=== PATIENT | female | born 1985 | race Two or more races ===

== ENCOUNTER → 2017-02-05 | Outpatient (REF) | payer OTHER | LOC: M LAB REF 12:52 | PROVIDERS: ATTEND Specialist | DX: Z12.4 Encounter for screening for malignant neoplasm of cervix (principal) ==

== ENCOUNTER → 2017-05-06 | Outpatient (REF) | payer OTHER | LOC: M SFHCLERA 13:19 | PROVIDERS: ATTEND Physician Assistant | DX: N39.0 Urinary tract infection, site not specified (principal) ==

== ENCOUNTER → 2018-05-06 | Outpatient (REF) | payer OTHER, MEDICAID ==
[2018-05-08 14:49] LABS: HPV HYBRID CAPTURE II Positive (Negative)
== END ==
LOC: M LAB REF 17:31
DX: Z01.419 Encounter for gynecological examination (general) (routine) without abnormal findings (principal); Z11.51 Encounter for screening for human papillomavirus (HPV); R87.611 Atypical squamous cells cannot exclude high grade squamous intraepithelial lesion on cytologic smear of cervix (ASC-H)
CPT/HCPCS: 88142

== ENCOUNTER → 2018-09-07 | Outpatient (REF) | payer OTHER, MEDICAID ==
[2018-09-07 20:09] LABS: HEMATOCRIT 41.4 % (36.0-47.0); HEMOGLOBIN 13.9 g/dl (12.0-15.5); MEAN CORPUSCULAR HEMOGLOBIN 30.7 pg (27.0-33.0); MEAN CORPUSCULAR HGB CONC 33.6 g/dl (32.0-36.5); MEAN CORPUSCULAR VOLUME 91.4 fl (80.0-96.0); PLATELET COUNT, AUTOMATED 302 10^3/uL (150-450); RED BLOOD COUNT 4.53 10^6/uL (4.00-5.40); RED CELL DISTRIBUTION WIDTH 12.3 % (11.5-14.5); WHITE BLOOD COUNT 11.9 10^3/uL (4.0-10.0)
== END ==
LOC: M SFHCLERA 14:48
DX: S61.451A Open bite of right hand, initial encounter (principal); X58.XXXA Exposure to other specified factors, initial encounter; Y92.9 Unspecified place or not applicable
CPT/HCPCS: 85027

== ENCOUNTER → 2019-06-07 | Outpatient (REF) | payer OTHER, MEDICAID ==
[2019-06-10 00:08] LABS: HPV HYBRID CAPTURE II Negative (Negative)
== END ==
LOC: M LAB REF 19:33
PROVIDERS: ATTEND Specialist
DX: R87.610 Atypical squamous cells of undetermined significance on cytologic smear of cervix (ASC-US) (principal)

== ENCOUNTER → 2019-07-07 | Outpatient (REF) | payer OTHER | LOC: M SFHCLERA 13:29 | PROVIDERS: ATTEND Nurse Practitioner Family | DX: R53.81 Other malaise (principal) ==

== ENCOUNTER → 2020-12-12 | Outpatient (REF) | payer OTHER ==
[2020-12-12 16:13] LABS: FOLLICLE STIMULATING HORMONE 5.5 mIU/mL; FREE T4 0.83 NG/DL (0.76-1.46); LUTEINIZING HORMONE 3.3 mIU/mL; PROLACTIN 15.6 NG/ML; THYROID STIMULATING HORMONE 2.15 uIU/ML (0.358-3.740)
== END ==
LOC: M PLALAB 13:29
PROVIDERS: ATTEND Specialist
DX: N92.6 Irregular menstruation, unspecified (principal)

== ENCOUNTER → 2021-07-11 | Outpatient (REF) | payer OTHER | LOC: M SFHCWAGY 13:17 | PROVIDERS: ATTEND Specialist | DX: Z12.4 Encounter for screening for malignant neoplasm of cervix (principal) ==

== ENCOUNTER 2021-08-30 08:56 | Emergency (ER) | payer OTHER ==
[~2021-08-30] VITALS: Ht 149.9 cm; Wt 67.2 kg
--- OUTSIDE RECORDS SUMMARY | 2021-08-30 09:02 | CCD ---
Author Author [facility] Organization [facility] Address Unknown Phone Unavailable Care Team Providers Care Home Health Lvn Name Role Phone Leon Zepeda Unavailable PROBLEMS Type Condition ICD9-CM Code [id number] Code Onset Dates Condition S tatus W/U Status Risk SNOMED Code Notes Problem Gastroesophageal reflux disease, esophagitis pre sence not specified K21.9 Active confirmed 205419407 Problem Alcohol abuse F10.10 Active confirmed 421836 05 Problem Irregular bleeding N92.6 Active confirmed 8 2169406 Problem Depression with anxiety F41.8 Active confirmed 440574299 Problem Tobacco dependence F17.200 Active confirmed 74020992 Problem Allergic rhinitis 477.9 Active confirmed 61 682201 Problem Perioral dermatitis L71.0 Active confirmed 781279826 ALLERGIES Allergen (clinical drug ingredient) Drug/Non Drug Allergy do cumented on EMR Reaction Allergy Type Onset Date Status Pollen Pollen Itchy eyes, Congestion Drug Allergy Active ENCOUNTERS from 1985 to 2021-07-23 Encounter Location Date Provider Diagnosis [facility] [address] [place] [id number] [place] [address] Jun, Leon Zepeda Encounter for annual routine gynecological examination Z01.419 IMMUNIZATIONS Vaccine Route Administration Date Status Influenza Denied Unknown Oct 07, 2019 Refused TDAP 0.5mL (Boostrix) IM Intramuscular Sep 07, 2018 Administe red SOCIAL HISTORY Tobacco Use: Social History Observation Description Date Details (start date - stop date) Current Smoker Sex Assigned At : Social History Observation Description Sex Assigned At Unknown Education: Question Answer Notes Level of Education: College Audit Question Answer Notes Total Score: 1 Interpretation: Alcohol Education Language: Question Answer Notes Languages spoken: Thai Congregational: Question Answer Notes Congregational 33 None Drug and Alcohol Question Answer Notes Total Score: 0 Interpretation: No problems reported Alcohol Screening: Question Answer Notes Did you have a drink containing alcohol in the past year? Ye s Points 1 Interpretation Negative How often did you have six or more drinks on one occas ion in the past year? Never (0 points) How many drinks did you have on a typica l day when you were drinking in the past year? 1 or 2 (0 points) How often did you have a drink containing alcohol in t he past year? Monthly or less (1 point) BMI Care Goal Follow-Up Question Answer Notes Above Normal BMI Follow-Up Dietary management educatio n, guidance, and counseling, Dietary needs education Tobacco Use: Question Answer Notes Are you a: current smoker Patient counseled on the dangers of tobacco use and urged to quit: 05/29/2021 How many cigarettes a day do you smoke? 11-20 REASON FOR REFERRAL No Information VITAL SIGNS Weight 143.8 lbs Jun, Weight-kg 65.23 kg Jun, Height 60 in Jun, BMI 28.08 kg/m2 Jun, Blood pressure systolic 110 mm Hg Jun, Blood pressure diastolic 78 mm Hg Jun, MEDICATIONS Medication SIG (Take, Route, Frequency, Duration) Notes Start Da te End Date Status Sudafed 30 MG 1 tablet as needed Orally every 6 hrs for 5 day(s) Jun, Not-Taking Norethindrone 0.35 MG TAKE ONE TABLET BY MOUTH EVERY DAY Oral for 28 Active Flonase 50 MCG/ACT 1 spray in each nostril Nasally Twice a day f or 30 day(s) Jun, Not-Taking Augmentin 875-125 MG 1 tablet Orally every 12 hrs for 10 day(s) Jun, Not-Taking Clindamycin Phosphate 1 % 1 application Externally Once a day fo r 30 days Jun, Not-Taking Wellbutrin XL 150 MG 1 tablet in the morning x 7 days, then bid Orally bid for 30 day(s) Jun, Not-Taking Tretinoin 0.025 % 1 application in the evening to face Externally Once a day for 30 days Jun, Not-Taking Nicotine Step 3 7 MG/24HR 1 patch to skin Transdermal Once a day for 30 day(s) Sep, Not-Taking Omeprazole 40 mg 1 capsule Orally Once a day for 90 Active Claritin 10 MG 1 tablet Orally Once a day for 30 day(s) Active Albuterol Sulfate HFA 108 (90 Base) MCG/ACT 2 puffs as needed Inhalation every 6 hrs for 30 day(s) Jun, Not-Taking Citalopram Hydrobromide 10 MG 1 tablet Orally Once a day for 90 day(s) Apr, Active Diclofenac Sodium 50 mg 1 tablet Orally Three times a day for 15 day(s) Oct, Active Delsym 30 MG/5ML 10 ml as needed Orally every 12 hrs for 10 day( s) Jun, Not-Taking Cyclobenzaprine HCl 10 mg 1 tablet Orally Three times a day for 15 day(s) Oct, Active Xanax 0.5 MG 1 tablet Orally as needed for panic padmaja cks (MDD=1) for 30 day(s) Apr, Active Doxycycline Monohydrate 100 MG 1 capsule Orally Twice a day for acne for 30 days Dec, Not-Taking Nicotine Step 2 14 MG/24HR 1 patch to skin Transdermal Once a day for 30 day(s) Sep, Not-Taking Diflucan 150 MG 1 tablet Orally Daily for 1 days Jun, Not-Taking Norethindrone 0.35 MG 1 tablet Orally Once a day for 84 day(s) Jun, Active PROCEDURES No Information RESULTS No Results REASON FOR VISIT annual MEDICAL (GENERAL) HISTORY Type Description Date Medical History depression Medical History anxiety Surgical History left hand 4th finger 2006 Hospitalization History childbirth Goals Section No Information Health Concerns No Information MEDICAL EQUIPMENT No Information MENTAL STATUS No Information FUNCTIONAL STATUS No Information ASSESSMENTS Encounter Date Diagnosis Assessment Notes Treatment Notes Treatm ent Clinical Notes Jun, Encounter for annual routine gynecological examination (ICD-10 - Z01.419) PLAN OF TREATMENT Medication Medication Name Sig Start Date Stop Date Norethindrone 0.35 MG 1 tablet Orally Once a day for 84 day(s) 1 Jun, Treatment Notes Test Name Order Date PAP REQUEST FOR SERVICE 2021-07-11 Next Appt Details Provider Name:Ursula Leggett, 03:45:00 PM, [id number] [facility], , [place], [address], Insurance Providers Payer Name Payer Address Payer Phone Insured Name Patient Relati onship to Insured Coverage Start Date Coverage End Date [employer] (NON MEDICAID MANAGED CARE) CORPORATE CLAIMS DEPT [address] [facility] [phone] FREDY RANDLE
--- OUTSIDE RECORDS SUMMARY | 2021-08-30 09:02 | CCD ---
Author Author [facility] Organization [facility] Address Unknown Phone Unavailable Care Team Providers Care Precision Instrument Maker Name Role Phone Leon Zepeda Unavailable PROBLEMS Type Condition ICD9-CM Code [id number] Code Onset Dates Condition S tatus W/U Status Risk SNOMED Code Notes Problem Gastroesophageal reflux disease, esophagitis pre sence not specified K21.9 Active confirmed 079924391 Problem Alcohol abuse F10.10 Active confirmed 444299 05 Problem Irregular bleeding N92.6 Active confirmed 8 3840221 Problem Depression with anxiety F41.8 Active confirmed 774285076 Problem Tobacco dependence F17.200 Active confirmed 28393084 Problem Allergic rhinitis 477.9 Active confirmed 61 171425 Problem Perioral dermatitis L71.0 Active confirmed 351104159 ALLERGIES Allergen (clinical drug ingredient) Drug/Non Drug Allergy do cumented on EMR Reaction Allergy Type Onset Date Status Pollen Pollen Itchy eyes, Congestion Drug Allergy Active ENCOUNTERS from 1985 to 2021-07-18 Encounter Location Date Provider Diagnosis [facility] [address] [place] [address] [place] [address] May, 2021 Leon Zepeda IMMUNIZATIONS Vaccine Route Administration Date Status Influenza [...] Education Language: Question Answer Notes Languages spoken: Icelandic Spiritism: Question Answer Notes Spiritism 33 None Drug and Alcohol Question Answer [...] REASON FOR REFERRAL No Information VITAL SIGNS No information MEDICATIONS Medication SIG (Take, Route, Frequency, Duration) [...] Information RESULTS No Results REASON FOR VISIT bc MEDICAL (GENERAL) HISTORY Type Description Date Medical History depression Medical History anxiety Surgical History left hand 4th finger 2006 Hospitalization History childbirth Goals Section No Information Health Concerns No Information MEDICAL EQUIPMENT No Information MENTAL STATUS No Information FUNCTIONAL STATUS No Information ASSESSMENTS No Information PLAN OF TREATMENT Medication Medication Name Sig Start Date Stop Date Norethindrone 0.35 MG 1 tablet Orally Once a day for 84 day(s) 1 3 Jun, 2021 Next Appt Details Provider Name:Ursulalucy Carrin, 03:45:00 PM, [id number] [facility], , [place], [address], Insurance Providers Payer Name Payer Address Payer Phone Insured Name Patient Relati onship to Insured Coverage Start Date Coverage End Date J[employer]IMA (NON MEDICAID MANAGED CARE) CORPORATE CLAIMS DEPT [address] [facility] [phone] FREDY RANDLE
--- OUTSIDE RECORDS SUMMARY | 2021-08-30 09:02 | CCD ---
Author Author [facility] Organization [facility] Address Unknown Phone Unavailable Care Team Providers Care Income Tax Advisor Name Role Phone Kole Leggettnzie Unavailable PROBLEMS Type Condition ICD9-CM Code [id number] Code Onset Dates Condition S tatus W/U Status Risk SNOMED Code Notes Problem Gastroesophageal reflux disease, esophagitis pre sence not specified K21.9 Active confirmed 583880301 Problem Alcohol abuse F10.10 Active confirmed 687815 05 Problem Irregular bleeding N92.6 Active confirmed 8 8296255 Problem Depression with anxiety F41.8 Active confirmed 705593564 Problem Tobacco dependence F17.200 Active confirmed 38873938 Problem Allergic rhinitis 477.9 Active confirmed 61 264870 Problem Perioral dermatitis L71.0 Active confirmed 740286476 ALLERGIES Allergen (clinical drug ingredient) Drug/Non Drug Allergy do cumented on EMR Reaction Allergy Type Onset Date Status Seasonal Itchy eyes, Congestion Non Drug Allergy Active ENCOUNTERS from 1985 to 2021-06-08 Encounter Location Date Provider Diagnosis [facility] [id number] [place] [address] [place] [address] Apr, Ursula Leggett Depression with anxiety F41. 8 and BMI 28.0-28.9,adult Z68.28 IMMUNIZATIONS Vaccine Route Administration Date Status Influenza [...] Education Language: Question Answer Notes Languages spoken: Vietnamese Hindu: Question Answer Notes Hindu 33 None Sexual Hx: Question Answer Notes Had sex in the last 12 months (vaginal, oral, or anal)? Yes Have you ever had an STD? Yes with Men only Use protection? Yes Other? Yes How often? All of the time Drug and Alcohol Question Answer Notes Total [...] do you smoke? 11-20 REASON FOR REFERRAL from 1985 to 2021-06-08 Reason 35yo female w/ incrasing anx iety and depression, previously in CBT, wishing to resume, also started on SSRI Diagnosis 1 Depression with anxiety (F41 .8) Referral Organization [facility] Roberto Referring Provider First Name Ursula Referring Provider Last Name Oleksandr Referring Provider Specialty Family Medicine Referred Provider Specialty Behavioral Health Referral Priority Routine VITAL SIGNS Weight 144 lbs Apr, Weight-kg 65.32 kg Apr, Height 60 in Apr, BMI 28.12 kg/m2 Apr, Heart Rate 95 /min Apr, Respiratory Rate 17 /min Apr, Temperature 98.2 degrees Fahrenheit Apr, Oximetry 99 Apr, Blood pressure systolic 127 mm Hg Apr, Blood pressure diastolic 77 mm Hg Apr, MEDICATIONS Medication SIG (Take, Route, Frequency, Duration) Notes Start Da te End Date Status Albuterol Sulfate HFA 108 (90 Base) MCG/ACT 2 puffs as needed Inhalation every 6 hrs for 30 day(s) Jun, Not-Taking Clindamycin Phosphate 1 % 1 application Externally Once a day fo r 30 days Jun, Not-Taking Norethindrone 0.35 MG TAKE ONE TABLET BY MOUTH EVERY DAY Oral for 28 Active Flonase 50 MCG/ACT 1 spray in each nostril Nasally Twice a day f or 30 day(s) Jun, Not-Taking Augmentin 875-125 MG 1 tablet Orally every 12 hrs for 10 day(s) Jun, Not-Taking Nicotine Step 3 7 MG/24HR 1 patch to skin Transdermal Once a day for 30 day(s) Sep, Not-Taking Citalopram Hydrobromide 10 MG 1 tablet Orally Once a day for 90 day(s) Apr, Active Claritin 10 MG 1 tablet Orally Once a day for 30 day(s) Active Wellbutrin XL 150 MG 1 tablet in the morning x 7 days, then bid Orally bid for 30 day(s) Jun, Not-Taking Diflucan 150 MG 1 tablet Orally Daily for 1 days Jun, 019 Not-Taking Sudafed 30 MG 1 tablet as needed Orally every 6 hrs for 5 day(s) Jun, Not-Taking Doxycycline Monohydrate 100 MG 1 capsule Orally Twice a day for acne for 30 days Dec, Not-Taking Nicotine Step 2 14 MG/24HR 1 patch to skin Transdermal Once a day for 30 day(s) Sep, Not-Taking Tretinoin 0.025 % 1 application in the evening to face Externally Once a day for 30 days Jun, Not-Taking Diclofenac Sodium 50 mg 1 tablet Orally Three times a day for 15 day(s) Oct, Active Xanax 0.5 MG 1 tablet Orally as needed for panic padmaja cks (MDD=1) for 30 day(s) Apr, Active Omeprazole 40 mg 1 capsule Orally Once a day for 90 Active Cyclobenzaprine HCl 10 mg 1 tablet Orally Three times a day for 15 day(s) Oct, Active Delsym 30 MG/5ML 10 ml as needed Orally every 12 hrs for 10 day( s) Jun, Not-Taking PROCEDURES No Information RESULTS No Results REASON FOR VISIT XANAX F/U MEDICAL (GENERAL) HISTORY Type Description Date Medical History depression Medical History anxiety Surgical History left hand 4th finger 2006 Hospitalization History childbirth Goals Section No Information Health Concerns No Information MEDICAL EQUIPMENT No Information MENTAL STATUS No Information FUNCTIONAL STATUS No Information ASSESSMENTS Encounter Date Diagnosis Assessment Notes Treatment Notes Treatm ent Clinical Notes Apr, Depression with anxiety (ICD-10 - F41.8) Positive PHQ-9 and JORDY-7. Options for the treatment of depression were discussed extensively including cognitive behavioral therapy, talk therapy. Pharmacologic therapy including SSRI, SNRI, TCA and Wellbutrin were discussed. The risks and benefits and side effects for each discussed. All questions were answered. Reference#:[id number], last filled 04/24/2021. Also referral to resume CBT. Plan FU in 2 months. Apr, BMI 28.0-28.9,adult (ICD-10 - Z68.28) PLAN OF TREATMENT Medication Medication Name Sig Start Date Stop Date Norethindrone 0.35 MG TAKE ONE TABLET BY MOUTH EVERY DAY Oral fo r 28 Xanax 0.5 MG 1 tablet Orally as needed for panic padmaja cks (MDD=1) for 30 day(s) Apr, Citalopram Hydrobromide 10 MG 1 tablet Orally Once a day for 90 day(s) Apr, Treatment Notes Assessment Notes Clinical Notes Depression with anxiety Positive PHQ-9 a nd JORDY-7. Options for the treatment of depression were discussed extensively including cognitive behavioral therapy, talk therapy. Pharmacologic therapy including SSRI, SNRI, TCA and Wellbutrin were discussed. The risks and benefits and side effects for each discussed. All questions were answered. Reference#:[id number], last filled 04/24/2021. Also referral to resume CBT. Plan FU in 2 months. Referrals Referral Date Details 35yo female w/ incrasing anx iety and depression, previously in CBT, wishing to resume, also started on SSRI Next Appt Details 2 Months (SSRI FU) Reason: Provider Name:Leon Zepeda, 2021-07-11 11:00:00 AM, [address] [facility], , [place], [address], Provider Name:Ursula Leggett, 03:45:00 PM, [id number] [place] [address] , [place], [address], Insurance Providers Payer Name Payer Address Payer Phone Insured Name Patient Relati onship to Insured Coverage Start Date Coverage End Date [id number] (NON MEDICAID MANAGED CARE) CORPORATE CLAIMS DEPT [address] [facility] [phone] FREDY RANDLE self
[2021-08-30] MEDS ORDERED: ALPR0.5T3 (09:03)
[2021-08-30] MEDS ORDERED: DICL50TAB (09:03)
[2021-08-30] MEDS ORDERED: CITA10TA5 (09:03)
[2021-08-30] MEDS ORDERED: DEBL1TAB (09:03)
[2021-08-30] MEDS ORDERED: CYCL-707 (09:03)
--- OUTSIDE RECORDS SUMMARY | 2021-08-30 09:03 | CCD ---
Author Author [facility] Organization [facility] Address Unknown Phone Unavailable Care Team Providers Care Plant Guard Name Role Phone Rich Fletcher PA-C Unavailable Unavailable Rich Fletcher PA-C Unavailable Unavailable iRch Fletcher PA-C Unavailable Unavailable Rich Fletcher PA-C Unavailable Unavailable Rich Fletcher PA-C Unavailable Unavailable Rich Fletcher PA-C Unavailable Unavailable Rich Fletcher PA-C Unavailable Unavailable Rich Fletcher PA-C Unavailable Unavailable Rich Fletcher PA-C Unavailable Unavailable Rich Fletcher PA-C Unavailable Unavailable Rich Fletcher PA-C Unavailable Unavailable Rich Fletcher PA-C Unavailable Unavailable Rich Fletcher PA-C Unavailable Unavailable Rich Fletcher PA-C Unavailable Unavailable Rich Fletcher PA-C Unavailable Unavailable Fletcher, M Christopher PA-C Unavailable Unavailable Fletcher, M Christopher PA-C Unavailable Unavailable Fletcher, M Christopher PA-C Unavailable Unavailable Fletcher, M Christopher PA-C Unavailable Unavailable Fletcher, M Christopher PA-C Unavailable Unavailable Fletcher, M Christopher PA-C Unavailable Unavailable Fletcher, M Christopher PA-C Unavailable Unavailable Fletcher, Rich Christopher PA-C Unavailable Unavailable Fletcher, M Christopher PA-C Unavailable Unavailable Fletcher, M Christopher PA-C Unavailable Unavailable Fletcher, M Christopher PA-C Unavailable Unavailable Re-disclosure Warning The records that you are about to access may contain information from federally-assisted alcohol or drug abuse programs. If such information is present, then the following federally mandated warning applies: This information has been disclosed to you from records protected by federal confidentiality rules (42 CFR part 2). The federal rules prohibit you from making any further disclosure of this information unless further disclosure is expressly permitted by the written consent of the person to whom it pertains or as otherwise permitted by 42 CFR part 2. A general authorization for the release of medical or other information is NOT sufficient for this purpose. The Federal rules restrict any use of the information to criminally investigate or prosecute any alcohol or drug abuse patient.The records that you are about to access may contain highly sensitive health information, the redisclosure of which is protected by Article 27-F of the [facility] Public Health law. If you continue you may have access to information: Regarding HIV / AIDS; Provided by facilities licensed or operated by the [facility] Office of Mental Health; or Provided by the [facility] Office for People With Developmental Disabilities. If such information is present, then the following [facility] mandated warning applies: This information has been disclosed to you from confidential records which are protected by state law. State law prohibits you from making any further disclosure of this information without the specific written consent of the person to whom it pertains, or as otherwise permitted by law. Any unauthorized further disclosure in violation of state law may result in a fine or fpc sentence or both. A general authorization for the release of medical or other information is NOT sufficient authorization for further disc losure. Family History Family Member Name Family Member Gender Family Member Status Date o f Status Description Data Source(s) Unknown Unknown Problem [facility] ([facility], ) Encounters Encounter Providers Location Date Indications Data Source(s ) [place] [address] [facility] [address] 07/11/2021 12:00:00 AM EDT eCW1 ([facility]) Unknown [address] [facility] [address] 06/06/2021 12:00:00 AM EDT eCW1 ([facility]) Outpatient [address] [facility] [address] 05/29/2021 12:00:00 AM EDT eCW1 ([facility]) Unknown [address] [facility] [address] 05/14/2021 12:00:00 AM EDT eCW1 ([facility]) [place] [address] [facility] [address] 04/16/2021 12:00:00 AM EDT eCW1 ([facility]) Outpatient Attender: Pedro Luis Fletcher PA-C 04/01/2021 12:27:54 PM EDT - 04/01/2021 03:12:52 PM EDT [facility] ([facility]) Unknown [address] [facility] [address] 01/24/2021 12:00:00 AM EDT eCW1 ([facility]) Unknown [address] [facility] [address] 12/19/2020 12:00:00 AM EDT eCW1 ([facility]) Outpatient [address] [facility] [address] 12/12/2020 12:00:00 AM EDT eCW1 ([facility] [place] [address] [facility] [address] 11/07/2020 12:00:00 AM EST eCW1 ([facility]) Unknown [address] [facility] [address] 10/26/2020 12:00:00 AM EST eCW1 ([facility]) [place] [address] [facility] [place] [address] 10/05/2020 12:00:00 AM EST eCW1 ([facility]) Unknown [address] [facility] [address] 08/16/2020 12:00:00 AM EST eCW1 ([facility]) Unknown [address] [facility] [address] 08/09/2020 12:00:00 AM EST eCW1 ([facility]) Unknown [address] [facility] [address] 07/26/2020 12:00:00 AM EDT eCW1 ([facility]) Outpatient [address] [facility] [address] 07/25/2020 12:00:00 AM EDT eCW1 ([facility]) Unknown [address] [facility] [address] 07/11/2020 12:00:00 AM EDT eCW1 ([facility]) Medications Medication Brand Name Start Date Product Form Dose Route Admi nistrative Instructions Pharmacy Instructions Status Indications Reaction Description Data Source(s) Alprazolam 0.5 MG Oral Tablet ALPRAZOLAM 07/28/2021 12:00:00 AM EDT ta blet 4 TAKE ONE TABLET BY MOUTH EVERY DAY NEEDED FOR PANIC ATTACKS * MAXIMUM DAILY DOSE = 1 TAKE ONE TABLET BY MOUTH EVERY DAY NE EDED FOR PANIC ATTACKS * MAXIMUM DAILY DOSE = 1 SOLD: 07/31/2021 [facility] Norethindrone 0.35 MG Norethindrone 0.35 MG 07/11/2021 12:00:00 AM EDT 1.0 {tablet} active Norethindrone 0.35 MG e CW1 ([facility]) Norethindrone 0.35 MG Norethindrone 0.35 MG 07/11/2021 12:00:00 AM EDT 1.0 {tablet} active Norethindrone 0.35 MG e CW1 ([facility]) 0.35 mg 07/11/2021 12:00:00 AM EDT tablet 84 TAKE ONE TABLET BY MOUTH EVERY DAY TAKE ONE TABLET BY MOUTH EVERY DAY SOLD: 07/18/2021 [facility] Alprazolam 0.5 MG Oral Tablet ALPRAZOLAM 05/30/2021 12:00:00 AM EDT ta blet 4 TAKE ONE TABLET BY MOUTH ONCE NEEDED FOR PANIC ATTACKS, MAXIMUM DAILY DOSE = 1 TABLET TAKE ONE TABLET BY MOUTH ONCE NEEDED FOR PANIC ATTACKS, MAXIMUM DAILY DOSE = 1 TABLET SOLD: 05/31/2021 [facility] 10 mg 05/30/2021 12:00:00 AM EDT tablet 90 TAKE ONE TABLET BY MOUTH EVERY DAY TAKE ONE TABLET BY MOUTH EVERY DAY SOLD: 05/31/2021 [facility] Citalopram 10 MG Oral Tablet Citalopram Hydrobromide 1 0 MG Citalopram Hydrobromide 10 MG 05/29/2021 12:00:00 AM EDT 1.0 {tablet} active Citalopram Hydrobromide 10 MG eCW1 ([facility]) Citalopram 10 MG Oral Tablet Citalopram Hydrobromide 1 0 MG Citalopram Hydrobromide 10 MG 05/29/2021 12:00:00 AM EDT 1.0 {tablet} active Citalopram Hydrobromide 10 MG eCW1 ([facility]) Alprazolam 0.5 MG Oral Tablet [Xanax] Xanax 0.5 MG Xanax 0.5 MG 05/29/2021 12:00:00 AM EDT 1.0 {tablet} active Xa nax 0.5 MG eCW1 ([facility]) Alprazolam 0.5 MG Oral Tablet [Xanax] Xanax 0.5 MG Xanax 0.5 MG 05/29/2021 12:00:00 AM EDT 1.0 {tablet} active Xa nax 0.5 MG eCW1 ([facility]) Alprazolam 0.5 MG Oral Tablet [Xanax] Xanax 0.5 MG Xanax 0.5 MG 05/29/2021 12:00:00 AM EDT 1.0 {tablet} active Xa nax 0.5 MG eCW1 ([facility]) Citalopram 10 MG Oral Tablet Citalopram Hydrobromide 1 0 MG Citalopram Hydrobromide 10 MG 05/29/2021 12:00:00 AM EDT 1.0 {tablet} active Citalopram Hydrobromide 10 MG eCW1 ([facility]) Alprazolam 0.5 MG Oral Tablet ALPRAZOLAM 04/17/2021 12:00:00 AM EDT ta blet 4 TAKE 1 TABLET BY MOUTH NEEDED FOR PANIC ATTACKS MAXIMUM DAILY DOSE = 1 TABLET TAKE 1 TABLET BY MOUTH NEEDED FOR SHAH IC ATTACKS MAXIMUM DAILY DOSE = 1 TABLET SOLD: 04/24/2021 [facility] Amoxicillin 875 MG / Clavulanate 125 MG Oral Tablet 87 5-125 mg AMOXICILLIN/POTASSIUM CLAV 04/01/2021 12:00:00 AM EDT tablet 20 TAKE ONE TABLET BY MOUTH TWICE A DAY FOR 10 DAYS TAKE ONE TABLET BY MOUTH TWICE A DAY FOR 10 DAYS SOLD: 04/01/2021 [facility] Alprazolam 0.5 MG Oral Tablet ALPRAZOLAM 01/24/2021 12:00:00 AM EDT ta blet 4 TAKE 1 TABLET BY MOUTH NEEDED FOR PANIC ATTACKS MAXIMUM DAILY DOSE = 1 TABLET TAKE 1 TABLET BY MOUTH NEEDED FOR SHAH IC ATTACKS MAXIMUM DAILY DOSE = 1 TABLET SOLD: 01/27/2021 [facility] 0.35 mg 11/08/2020 12:00:00 AM EST tablet 84 TAKE ONE TABLET BY MOUTH ONCE A DAY TAKE ONE TABLET BY MOUTH ONCE A DAY SOLD: 05/03/2021 [facility] 0.35 mg 11/08/2020 12:00:00 AM EST tablet 84 TAKE ONE TABLET BY MOUTH ONCE A DAY TAKE ONE TABLET BY MOUTH ONCE A DAY SOLD: 11/10/2020 [facility] 0.35 mg 11/08/2020 12:00:00 AM EST tablet 84 TAKE ONE TABLET BY MOUTH ONCE A DAY TAKE ONE TABLET BY MOUTH ONCE A DAY SOLD: 02/08/2021 [facility] Norethindrone 0.35 MG Norethindrone 0.35 MG 11/07/2020 12:00:00 AM EST 1.0 {tablet} active Norethindrone 0.35 MG e CW1 ([facility]) Alprazolam 0.5 MG Oral Tablet ALPRAZOLAM 10/27/2020 12:00:00 AM EST ta blet 4 TAKE ONE TABLET BY MOUTH NEEDED FOR PANIC ATTACKS. MAXIMUM DAILY DOSE = 1 TABLET TAKE ONE TABLET BY MOUTH NEEDED FOR P ANIC ATTACKS. MAXIMUM DAILY DOSE = 1 TABLET SOLD: 11/02/2020 [facility] 50 mg 10/27/2020 12:00:00 AM EST tablet,delayed release (DR/EC) 45 TAKE ONE TABLET BY MOUTH THREE TIMES A DAY TAKE ONE TABLET BY MOUTH THREE TIMES A DAY SOLD: 11/02/2020 [facility] Cyclobenzaprine hydrochloride 10 MG Oral Tablet CYCLOBENZAPR INE HCL 10/27/2020 12:00:00 AM EST tablet 45 TAKE ONE TABLET BY MOUTH THREE TIMES A DAY TAKE ONE TABLET BY MOUTH THREE TIMES A DAY SOLD: 11/02/2020 [facility] Tretinoin 0.47308 MG/MG Topical Gel 0.025 % TRETINOIN 10/05/2020 12:00:00 AM EST gel 30 APPLY TO FACE IN THE EVENING APPLY T O FACE IN THE EVENING SOLD: 11/10/2020 [facility] 100 mg 10/05/2020 12:00:00 AM EST capsule 60 TAKE ONE CAPSULE BY MOUTH TWICE A DAY TAKE ONE CAPSULE BY MOUTH TWICE A DAY SOLD: 10/13/2020 [facility] Tretinoin 0.20393 MG/MG Topical Gel 0.025 % TRETINOIN 10/05/2020 12:00:00 AM EST gel 30 APPLY TO FACE IN THE EVENING APPLY T O FACE IN THE EVENING SOLD: 10/13/2020 [facility] 1 % 10/05/2020 12:00:00 AM EST gel 30 APPLY ONCE A DAY APPLY ONCE A DAY SOLD: 10/13/2020 [facility] Alprazolam 0.5 MG Oral Tablet ALPRAZOLAM 08/11/2020 12:00:00 AM EST ta blet 4 TAKE ONE TABLET BY MOUTH NEEDED FOR PANIC ATTACKS MAXIMUM DAILY DOSE = 1 TAKE ONE TABLET BY MOUTH NEEDED FOR PANIC ATTACKS MAXIMUM DAILY DOSE = 1 SOLD: 08/12/2020 [facility] 1 % 08/05/2020 12:00:00 AM EST gel 30 APPLY ONCE A DAY APPLY ONCE A DAY SOLD: 08/12/2020 [facility] Tretinoin 0.88897 MG/MG Topical Gel Tretinoin 0.025 % Tretin oin 0.025 % 07/27/2020 12:00:00 AM EDT active Tretinoin 0.025 % eCW1 ([facility]) Tretinoin 0.00424 MG/MG Topical Gel Tretinoin 0.025 % Tretin oin 0.025 % 07/27/2020 12:00:00 AM EDT active Tretinoin 0.025 % eCW1 ([facility]) Clindamycin 0.01 MG/MG Topical Gel Clindamycin Phospha te 1 % Clindamycin Phosphate 1 % 07/27/2020 12:00:00 AM EDT 1.0 {application} active Clindamycin Phosphate 1 % eCW1 ([facility]) Clindamycin 0.01 MG/MG Topical Gel Clindamycin Phospha te 1 % Clindamycin Phosphate 1 % 07/27/2020 12:00:00 AM EDT 1.0 {application} active Clindamycin Phosphate 1 % eCW1 ([facility]) Clindamycin 0.01 MG/MG Topical Gel Clindamycin Phospha te 1 % Clindamycin Phosphate 1 % 07/27/2020 12:00:00 AM EDT 1.0 {application} active Clindamycin Phosphate 1 % eCW1 ([facility]) Clindamycin 0.01 MG/MG Topical Gel Clindamycin Phospha te 1 % Clindamycin Phosphate 1 % 07/27/2020 12:00:00 AM EDT 1.0 {application} active Clindamycin Phosphate 1 % eCW1 ([facility]) Tretinoin 0.50276 MG/MG Topical Gel Tretinoin 0.025 % Tretin oin 0.025 % 07/27/2020 12:00:00 AM EDT active Tretinoin 0.025 % eCW1 ([facility]) Tretinoin 0.98587 MG/MG Topical Gel Tretinoin 0.025 % Tretin oin 0.025 % 07/27/2020 12:00:00 AM EDT active Tretinoin 0.025 % eCW1 ([facility]) Clindamycin 0.01 MG/MG Topical Gel Clindamycin Phospha te 1 % Clindamycin Phosphate 1 % 07/27/2020 12:00:00 AM EDT 1.0 {application} active Clindamycin Phosphate 1 % eCW1 ([facility]) Tretinoin 0.59651 MG/MG Topical Gel Tretinoin 0.025 % Tretin oin 0.025 % 07/27/2020 12:00:00 AM EDT suspended Tretinoin 0.025 % eCW1 ([facility]) Clindamycin 0.01 MG/MG Topical Gel Clindamycin Phospha te 1 % Clindamycin Phosphate 1 % 07/27/2020 12:00:00 AM EDT 1.0 {application} active Clindamycin Phosphate 1 % eCW1 ([facility]) Clindamycin 0.01 MG/MG Topical Gel Clindamycin Phospha te 1 % Clindamycin Phosphate 1 % 07/27/2020 12:00:00 AM EDT 1.0 {application} suspended Clindamycin Phosphate 1 % eCW1 ([facility]) Tretinoin 0.21429 MG/MG Topical Gel Tretinoin 0.025 % Tretin oin 0.025 % 07/27/2020 12:00:00 AM EDT active Tretinoin 0.025 % eCW1 ([facility]) Clindamycin 0.01 MG/MG Topical Gel Clindamycin Phospha te 1 % Clindamycin Phosphate 1 % 07/27/2020 12:00:00 AM EDT 1.0 {application} active Clindamycin Phosphate 1 % eCW1 ([facility]) Clindamycin 0.01 MG/MG Topical Gel Clindamycin Phospha te 1 % Clindamycin Phosphate 1 % 07/27/2020 12:00:00 AM EDT 1.0 {application} active Clindamycin Phosphate 1 % eCW1 ([facility]) Clindamycin 0.01 MG/MG Topical Gel Clindamycin Phospha te 1 % Clindamycin Phosphate 1 % 07/27/2020 12:00:00 AM EDT 1.0 {application} suspended Clindamycin Phosphate 1 % eCW1 ([facility]) Tretinoin 0.65305 MG/MG Topical Gel 0.025 % TRETINOIN 07/27/2020 12:00:00 AM EDT gel 30 APPLY TO FACE IN THE EVENING ONCE A DAY APPLY TO FACE IN THE EVENING ONCE A DAY SOLD: 07/31/2020 [facility] Tretinoin 0.81710 MG/MG Topical Gel Tretinoin 0.025 % Tretin oin 0.025 % 07/27/2020 12:00:00 AM EDT active Tretinoin 0.025 % eCW1 ([facility]) Tretinoin 0.44631 MG/MG Topical Gel Tretinoin 0.025 % Tretin oin 0.025 % 07/27/2020 12:00:00 AM EDT active Tretinoin 0.025 % eCW1 ([facility]) Clindamycin 0.01 MG/MG Topical Gel Clindamycin Phospha te 1 % Clindamycin Phosphate 1 % 07/27/2020 12:00:00 AM EDT 1.0 {application} active Clindamycin Phosphate 1 % eCW1 ([facility]) Tretinoin 0.63533 MG/MG Topical Gel Tretinoin 0.025 % Tretin oin 0.025 % 07/27/2020 12:00:00 AM EDT active Tretinoin 0.025 % eCW1 ([facility]) Clindamycin 0.01 MG/MG Topical Gel Clindamycin Phospha te 1 % Clindamycin Phosphate 1 % 07/27/2020 12:00:00 AM EDT 1.0 {application} suspended Clindamycin Phosphate 1 % eCW1 ([facility]) Tretinoin 0.28549 MG/MG Topical Gel Tretinoin 0.025 % Tretin oin 0.025 % 07/27/2020 12:00:00 AM EDT suspended Tretinoin 0.025 % eCW1 ([facility]) Clindamycin 0.01 MG/MG Topical Gel Clindamycin Phospha te 1 % Clindamycin Phosphate 1 % 07/27/2020 12:00:00 AM EDT 1.0 {application} active Clindamycin Phosphate 1 % eCW1 ([facility]) Tretinoin 0.66339 MG/MG Topical Gel Tretinoin 0.025 % Tretin oin 0.025 % 07/27/2020 12:00:00 AM EDT active Tretinoin 0.025 % eCW1 ([facility]) Clindamycin 0.01 MG/MG Topical Gel Clindamycin Phospha te 1 % Clindamycin Phosphate 1 % 07/27/2020 12:00:00 AM EDT 1.0 {application} active Clindamycin Phosphate 1 % eCW1 ([facility]) Tretinoin 0.36626 MG/MG Topical Gel Tretinoin 0.025 % Tretin oin 0.025 % 07/27/2020 12:00:00 AM EDT suspended Tretinoin 0.025 % eCW1 ([facility]) Clindamycin 0.01 MG/MG Topical Gel Clindamycin Phospha te 1 % Clindamycin Phosphate 1 % 07/27/2020 12:00:00 AM EDT 1.0 {application} active Clindamycin Phosphate 1 % eCW1 ([facility]) Tretinoin 0.97370 MG/MG Topical Gel Tretinoin 0.025 % Tretin oin 0.025 % 07/27/2020 12:00:00 AM EDT active Tretinoin 0.025 % eCW1 ([facility]) Tretinoin 0.05083 MG/MG Topical Gel Tretinoin 0.025 % Tretin oin 0.025 % 07/27/2020 12:00:00 AM EDT active Tretinoin 0.025 % eCW1 ([facility]) Tretinoin 0.71556 MG/MG Topical Gel Tretinoin 0.025 % Tretin oin 0.025 % 07/27/2020 12:00:00 AM EDT active Tretinoin 0.025 % eCW1 ([facility]) 1 % 07/12/2020 12:00:00 AM EDT lotion 60 APPLY TO AFFECTED AREA(S) TWO TIMES A DAY APPLY TO AFFECTED AREA(S) TWO TIMES A DAY SOLD: 07/13/2020 [facility] Clindamycin 10 MG/ML Topical Lotion Clindamycin Phosph ate 1 % Clindamycin Phosphate 1 % 07/11/2020 12:00:00 AM EDT 1.0 {application} active Clindamycin Phosphate 1 % eCW1 ([facility]) 100 mg 06/12/2020 12:00:00 AM EDT capsule 60 TAKE ONE CAPSULE BY MOUTH TWICE A DAY TAKE ONE CAPSULE BY MOUTH TWICE A DAY SOLD: 08/12/2020 [facility] 0.025 % 06/12/2020 12:00:00 AM EDT cream 20 APPLY A SMALL AMOUNT TOPICALLY EVERY EVENING TO FACE APPLY A SMALL AMOUNT TOPICALLY EVERY EVENING TO FACE S OLD: 07/03/2020 [facility] 0.025 % 06/12/2020 12:00:00 AM EDT cream 20 APPLY A SMALL AMOUNT TOPICALLY EVERY EVENING TO FACE APPLY A SMALL AMOUNT TOPICALLY EVERY EVENING TO FACE S OLD: 07/24/2020 [facility] 100 mg 06/12/2020 12:00:00 AM EDT capsule 60 TAKE ONE CAPSULE BY MOUTH TWICE A DAY TAKE ONE CAPSULE BY MOUTH TWICE A DAY SOLD: 07/13/2020 [facility] 0.35 mg 09/09/2019 12:00:00 AM EST tablet 84 TAKE ONE TABLET BY MOUTH EVERY DAY TAKE ONE TABLET BY MOUTH EVERY DAY SOLD: 08/14/2020 [facility] Insurance Providers Payer name Policy type / Coverage type Policy ID Covered libertarian ID Covered libertarian's relationship to red Policy Red Plan Information RPR- Needs Payer Match [id number] Self [id number] [employer] [id number] Self [id number] [facility] [id number] ANSI-Medicaid [id number] ANSI-Commercial [id number] ANSI-Commercial [id number] [facility] [id number] ANSI-Commercial [id number] ANSI-Medicaid [id number] ANSI-Commercial [id number] ANSI-Medicaid [id number] ANSI-Medicaid [id number] ANSI-Commercial [id number] ANSI-Medicaid [id number] ANSI-Commercial [id number] ANSI-Medicaid [id number] ANSI-Commercial [id number] ANSI-Medicaid [id number] ANSI-Commercial [id number] Medicaid [place] Medigap Part B [id number] Self [id number] [facility] [place] Medicaid [id number] Self [id number] [facility] MEDICAID [facility] [id number] S [id number] [employer] [place] Medicaid [id number] Self [id number] [facility] [id number] SP [id number] SELF PAY UNAVAILABLE SP UNAVAILA BLE [facility] P [id number] S [id number] [facility] S UNAVAILABLE [id number] S UNAVAILABLE HMO BLUE P [id number] S [id number] [employer] [facility] [id number] SP [id number] [facility] [id number] SP [id number] MEDICAID [id number] SP [id number] Problems, Conditions, and Diagnoses Code Display Name Description Problem Type Effective Dates Data Source(s) N92.6 Irregular periods Irregular bleeding Problem 12/12/2020 12:00:00 AM EDT eCW1 ([facility]) Surgeries/Procedures No Information Results ID Date Data Source [id number] 08/12/2020 07:06:00 PM EST [facility] Name Value Range Interpretation Code Description Data Rajani rce(s) Supporting Document(s) SARS coronavirus 2 RNA [facility] This lab was ordered by [facility] and rep orted by [facility]. ID Date Data Source [id number] 08/07/2020 12:15:00 PM EST [facility] Name Value Range Interpretation Code Description Data Rajani rce(s) Supporting Document(s) SARS coronavirus 2 RNA [facility] This lab was ordered by [facility] and rep orted by [facility]. Procedure Social History Code Duration Value Status Description Data Source(s ) Smoking 07/16/2021 12:00:00 AM EDT Current Smoker completed Curre nt Smoker eCW1 ([facility]) Smoking 07/16/2021 12:00:00 AM EDT Current Smoker completed Curre nt Smoker eCW1 ([facility]) Smoking 05/29/2021 12:00:00 AM EDT Current Smoker completed Curre nt Smoker eCW1 ([facility]) Smoking 12/12/2020 12:00:00 AM EDT Current Smoker completed Curre nt Smoker eCW1 ([facility]) Smoking 12/12/2020 12:00:00 AM EDT Current Smoker completed Curre nt Smoker eCW1 ([facility]) Smoking 12/12/2020 12:00:00 AM EDT Current Smoker completed Curre nt Smoker eCW1 ([facility]) Smoking 12/12/2020 12:00:00 AM EDT Current Smoker completed Curre nt Smoker eCW1 ([facility]) Smoking 12/12/2020 12:00:00 AM EDT Current Smoker completed Curre nt Smoker eCW1 ([facility]) Smoking 10/05/2020 12:00:00 AM EST Current Smoker completed Curre nt Smoker eCW1 ([facility]) Smoking 10/05/2020 12:00:00 AM EST Current Smoker completed Curre nt Smoker eCW1 ([facility]) Smoking 10/05/2020 12:00:00 AM EST Current Smoker completed Curre nt Smoker eCW1 ([facility]) Smoking 07/25/2020 12:00:00 AM EDT Current Smoker completed Curre nt Smoker eCW1 ([facility]) Smoking 07/25/2020 12:00:00 AM EDT Current Smoker completed Curre nt Smoker eCW1 ([facility]) Smoking 07/25/2020 12:00:00 AM EDT Current Smoker completed Curre nt Smoker eCW1 ([facility]) Smoking 07/25/2020 12:00:00 AM EDT Current Smoker completed Curre nt Smoker eCW1 ([facility]) Vital Signs ID Date Data Source UNK Name Value Range Interpretation Code Description Data Source(s) Body weight 143.8 [lb_av] 143.8 [lb_av] eCW1 ([facility]) Body weight 65.23 kg 65.23 kg eCW1 ([facility]) Body height 60 [in_i] 60 [in_i] eCW1 ([facility]) Body mass index (BMI) [Ratio] 28.08 kg/m2 28.08 kg/m2 eCW1 ([facility]) Systolic blood pressure 110 mm[Hg] 110 mm[Hg] e CW1 ([facility]) Diastolic blood pressure 78 mm[Hg] 78 mm[Hg] eCW1 ([facility]) Body weight 144 [lb_av] 144 [lb_av] eCW1 ([facility]) Body weight 65.32 kg 65.32 kg eCW1 ([facility]) Body height 60 [in_i] 60 [in_i] eCW1 ([facility]) Body mass index (BMI) [Ratio] 28.12 kg/m2 28.12 kg/m2 eCW1 ([facility]) Heart rate 95 /min 95 /min eCW1 ([facility], [facility]) Respiratory rate 17 /min 17 /min eCW1 ([facility]) Body temperature 98.2 [degF] 98.2 [degF] eCW1 ( [facility]) Systolic blood pressure 127 mm[Hg] 127 mm[Hg] e CW1 ([facility]) Diastolic blood pressure 77 mm[Hg] 77 mm[Hg] eCW1 ([facility]) Body weight 143.8 [lb_av] 143.8 [lb_av] eCW1 ([facility]) Body height 60 [in_i] 60 [in_i] eCW1 ([facility]) Body mass index (BMI) [Ratio] 28.08 kg/m2 28.08 kg/m2 eCW1 ([facility]) Systolic blood pressure 132 mm[Hg] 132 mm[Hg] e CW1 ([facility]) Diastolic blood pressure 82 mm[Hg] 82 mm[Hg] eCW1 ([facility]) Body weight 147.0 [lb_av] 147.0 [lb_av] eCW1 ([facility]) Body height 60 [in_i] 60 [in_i] eCW1 ([facility]) Body mass index (BMI) [Ratio] 28.71 kg/m2 28.71 kg/m2 eCW1 ([facility]) Systolic blood pressure 126 mm[Hg] 126 mm[Hg] e CW1 ([facility]) Diastolic blood pressure 74 mm[Hg] 74 mm[Hg] eCW1 ([facility]) Body weight 138.0 [lb_av] 138.0 [lb_av] eCW1 ([facility]) Body height 60 [in_i] 60 [in_i] eCW1 ([facility]) Body mass index (BMI) [Ratio] 26.95 kg/m2 26.95 kg/m2 eCW1 ([facility]) Systolic blood pressure 122 mm[Hg] 122 mm[Hg] e CW1 ([facility]) Diastolic blood pressure 74 mm[Hg] 74 mm[Hg] eCW1 ([facility]) Patient Treatment Plan of Care Planned Activity Planned Date Details Description Data Source (s) Norethindrone 0.35 MG 07/11/2021 12:00:00 AM EDT eCW1 ([facility]) Norethindrone 0.35 MG 07/11/2021 12:00:00 AM EDT eCW1 ([facility]) Alprazolam 0.5 MG Oral Tablet [Xanax] 05/29/2021 12:00:00 AM EDT eCW1 ([facility]) Citalopram 10 MG Oral Tablet 05/29/2021 12:00:00 AM EDT eCW1 ([facility]) Norethindrone 0.35 MG 11/07/2020 12:00:00 AM EST eCW1 ([facility]) Clindamycin 0.01 MG/MG Topical Gel 07/27/2020 12:00:00 AM EDT eCW1 ([facility]) Tretinoin 0.07909 MG/MG Topical Gel 07/27/2020 12:00:00 AM EDT eCW1 ([facility]) Clindamycin 0.01 MG/MG Topical Gel 07/27/2020 12:00:00 AM EDT eCW1 ([facility]) Tretinoin 0.57626 MG/MG Topical Gel 07/27/2020 12:00:00 AM EDT eCW1 ([facility]) Clindamycin 0.01 MG/MG Topical Gel 07/27/2020 12:00:00 AM EDT eCW1 ([facility]) Tretinoin 0.08455 MG/MG Topical Gel 07/27/2020 12:00:00 AM EDT eCW1 ([facility]) Clindamycin 0.01 MG/MG Topical Gel 07/27/2020 12:00:00 AM EDT eCW1 ([facility]) Tretinoin 0.16817 MG/MG Topical Gel 07/27/2020 12:00:00 AM EDT eCW1 ([facility]) Clindamycin 0.01 MG/MG Topical Gel 07/27/2020 12:00:00 AM EDT eCW1 ([facility]) Tretinoin 0.13688 MG/MG Topical Gel 07/27/2020 12:00:00 AM EDT eCW1 ([facility]) Clindamycin 0.01 MG/MG Topical Gel 07/27/2020 12:00:00 AM EDT eCW1 ([facility]) Tretinoin 0.28693 MG/MG Topical Gel 07/27/2020 12:00:00 AM EDT eCW1 ([facility]) Clindamycin 0.01 MG/MG Topical Gel 07/27/2020 12:00:00 AM EDT eCW1 ([facility]) Tretinoin 0.77084 MG/MG Topical Gel 07/27/2020 12:00:00 AM EDT eCW1 ([facility]) Clindamycin 10 MG/ML Topical Lotion 07/11/2020 12:00:00 AM EDT eCW1 ([facility])
--- NOTE | 2021-08-30 09:19 | REP ---
INDICATION: BLURRED VISION, CONFUSION COMPARISON: 09/04/2007 TECHNIQUE: Axial noncontrast images from the skull base to the vertex with coronal reformations. This CT examination was performed using the following dose reduction techniques: Automated exposure control, adjustment of mA and/or kv according to the patient's size, and use of iterative reconstruction technique. FINDINGS: The ventricles, sulci, and cisterns are normal in position and appearance. Baxter-white differentiation is maintained. No acute intracranial hemorrhage, mass/mass effect, pathology or trauma/injury. No evidence for acute infarction. No extra-axial fluid collection. Calvarium is intact. Paranasal sinuses and mastoid air cells are clear. IMPRESSION: Normal noncontrast head CT. No evidence for acute intracranial pathology or trauma/injury. <Electronically signed by Juan Villar > 08/30/21 [id number]
--- OUTSIDE RECORDS SUMMARY | 2021-08-30 11:20 | CCD ---
Author Author [facility] Organization [facility] Address Unknown Phone Unavailable Care Team Providers Care Weave Room Supervisor Name Role Phone Rich Fletcher PA-C Unavailable [...] is protected by Article 27-F of the [facility] Public Health law. If you continue you may have access to information: Regarding HIV / AIDS; Provided by facilities licensed or operated by the [facility] Office of Mental Health; or Provided by the [facility] Office for People With Developmental Disabilities. If such information is present, then the following [facility] mandated warning applies: This information has [...] law may result in a fine or prison sentence or both. A general authorization for the release of medical or other information is NOT sufficient authorization for further disc losure. Family History Family Member Name Family Member Gender Family Member Status Date o f Status Description Data Source(s) Unknown Unknown Problem [facility] ([facility], ) Encounters Encounter Providers Location Date Indications Data Source(s ) [place] [address] [facility] [address] 07/11/2021 12:00:00 AM EDT eCW1 ([facility]) [place] [address] [facility] [address] 06/06/2021 12:00:00 AM EDT eCW1 ([facility]) [place] [address] [facility] [address] 05/29/2021 12:00:00 AM EDT eCW1 ([facility]) [place] [address] [facility] [address] 05/14/2021 12:00:00 AM EDT eCW1 ([facility] [place] [address] [facility] [address] 04/16/2021 12:00:00 AM EDT eCW1 ([facility]) Outpatient Attender: Pedro Luis Fletcher PA-C 04/01/2021 12:27:54 PM EDT - 04/01/2021 03:12:52 PM EDT [facility] ([facility]) [place] [address] [facility] [address] 01/24/2021 12:00:00 AM EDT eCW1 ([facility]) [place] [address] [facility] [address] 12/19/2020 12:00:00 AM EDT eCW1 ([facility]) [place] [address] [facility] [address] 12/12/2020 12:00:00 AM EDT [facility]CW1 [facility] [place] [address] [facility] [address] 11/07/2020 12:00:00 AM EST eCW1 ([facility]) [place] [address] [facility] [address] 10/26/2020 12:00:00 AM EST eCW1 ([facility]) [place] [address] [facility] [place] [address] 10/05/2020 12:00:00 AM EST eCW1 ([facility]) [place] [address] [facility] [address] 08/16/2020 12:00:00 AM EST eCW1 ([facility]) [place] [address] [facility] [address] 08/09/2020 12:00:00 AM EST eCW1 ([facility]) [place] [address] [facility] [address] 07/26/2020 12:00:00 AM EDT eCW1 ([facility]) [place] [address] [facility] [address] 07/25/2020 12:00:00 AM EDT eCW1 ([facility]) Unknown [address] [facility] [address] 07/11/2020 12:00:00 AM EDT eCW1 ([facility]) Medications Medication Brand Name Start Date Product [...] DAILY DOSE = 1 SOLD: 07/31/2021 [facility] Norethindrone 0.35 MG Norethindrone 0.35 MG 07/11/2021 12:00:00 AM EDT 1.0 {tablet} active Norethindrone 0.35 MG e CW1 ([facility]) Norethindrone 0.35 MG Norethindrone 0.35 MG 07/11/2021 12:00:00 AM EDT 1.0 {tablet} active Norethindrone 0.35 MG e CW1 ([facility]) 0.35 mg 07/11/2021 12:00:00 AM [...] {tablet} active Citalopram Hydrobromide 10 MG eCW1 ([facility]) Citalopram 10 MG Oral Tablet Citalopram Hydrobromide 1 0 MG Citalopram Hydrobromide 10 MG 05/29/2021 12:00:00 AM EDT 1.0 {tablet} active Citalopram Hydrobromide 10 MG eCW1 ([facility]) Alprazolam 0.5 MG Oral Tablet [Xanax] Xanax 0.5 MG Xanax 0.5 MG 05/29/2021 12:00:00 AM EDT 1.0 {tablet} active Xa nax 0.5 MG eCW1 ([facility]) Alprazolam 0.5 MG Oral Tablet [Xanax] Xanax 0.5 MG Xanax 0.5 MG 05/29/2021 12:00:00 AM EDT 1.0 {tablet} active Xa nax 0.5 MG eCW1 ([facility]) Alprazolam 0.5 MG Oral Tablet [Xanax] Xanax 0.5 MG Xanax 0.5 MG 05/29/2021 12:00:00 AM EDT 1.0 {tablet} active Xa nax 0.5 MG eCW1 ([facility]) Citalopram 10 MG Oral Tablet Citalopram Hydrobromide 1 0 MG Citalopram Hydrobromide 10 MG 05/29/2021 12:00:00 AM EDT 1.0 {tablet} active Citalopram Hydrobromide 10 MG eCW1 ([facility]) Alprazolam 0.5 MG Oral Tablet [...] {tablet} active Norethindrone 0.35 MG e CW1 ([facility]) Alprazolam 0.5 MG Oral Tablet ALPRAZOLAM 10/27/2020 12:00:00 AM EST ta blet 4 TAKE ONE TABLET BY MOUTH NEEDED FOR PANIC ATTACKS. MAXIMUM DAILY DOSE = 1 TABLET TAKE ONE TABLET BY MOUTH NEEDED FOR P ANIC ATTACKS. MAXIMUM DAILY DOSE = 1 TABLET SOLD: 11/02/2020 [facility] 50 mg 10/27/2020 12:00:00 AM EST tablet,delayed release (DR/EC) 45 TAKE ONE TABLET BY MOUTH THREE TIMES A DAY TAKE ONE TABLET BY MOUTH THREE TIMES A DAY SOLD: 11/02/2020 [facility] Cyclobenzaprine hydrochloride 10 MG Oral Tablet CYCLOBENZAPR INE HCL 10/27/2020 12:00:00 AM EST tablet 45 TAKE ONE TABLET BY MOUTH THREE TIMES A DAY TAKE ONE TABLET BY MOUTH THREE TIMES A DAY SOLD: 11/02/2020 [facility] Tretinoin 0.25306 MG/MG Topical Gel 0.025 % TRETINOIN 10/05/2020 12:00:00 AM EST gel 30 APPLY TO FACE IN THE EVENING APPLY T O FACE IN THE EVENING SOLD: 11/10/2020 [facility] 100 mg 10/05/2020 12:00:00 AM EST capsule 60 TAKE ONE CAPSULE BY MOUTH TWICE A DAY TAKE ONE CAPSULE BY MOUTH TWICE A DAY SOLD: 10/13/2020 [facility] Tretinoin 0.03145 MG/MG Topical Gel 0.025 % TRETINOIN 10/05/2020 12:00:00 AM EST gel 30 APPLY TO FACE IN THE EVENING APPLY T O FACE IN THE EVENING SOLD: 10/13/2020 [facility] 1 % 10/05/2020 12:00:00 AM EST gel 30 APPLY ONCE A DAY APPLY ONCE A DAY SOLD: 10/13/2020 [facility] Alprazolam 0.5 MG Oral Tablet ALPRAZOLAM 08/11/2020 12:00:00 AM EST ta blet 4 TAKE ONE TABLET BY MOUTH NEEDED FOR PANIC ATTACKS MAXIMUM DAILY DOSE = 1 TAKE ONE TABLET BY MOUTH NEEDED FOR PANIC ATTACKS MAXIMUM DAILY DOSE = 1 SOLD: 08/12/2020 [facility] 1 % 08/05/2020 12:00:00 AM EST gel 30 APPLY ONCE A DAY APPLY ONCE A DAY SOLD: 08/12/2020 [facility] Tretinoin 0.61063 MG/MG Topical Gel Tretinoin 0.025 % Tretin oin 0.025 % 07/27/2020 12:00:00 AM EDT active Tretinoin 0.025 % eCW1 ([facility]) Tretinoin 0.93383 MG/MG Topical Gel Tretinoin 0.025 % Tretin oin 0.025 % 07/27/2020 12:00:00 AM EDT active Tretinoin 0.025 % eCW1 ([facility]) Clindamycin 0.01 MG/MG Topical Gel Clindamycin Phospha te 1 % Clindamycin Phosphate 1 % 07/27/2020 12:00:00 AM EDT 1.0 {application} active Clindamycin Phosphate 1 % eCW1 ([facility]) Clindamycin 0.01 MG/MG Topical Gel Clindamycin Phospha te 1 % Clindamycin Phosphate 1 % 07/27/2020 12:00:00 AM EDT 1.0 {application} active Clindamycin Phosphate 1 % eCW1 ([facility]) Clindamycin 0.01 MG/MG Topical Gel Clindamycin Phospha te 1 % Clindamycin Phosphate 1 % 07/27/2020 12:00:00 AM EDT 1.0 {application} active Clindamycin Phosphate 1 % eCW1 ([facility]) Clindamycin 0.01 MG/MG Topical Gel Clindamycin Phospha te 1 % Clindamycin Phosphate 1 % 07/27/2020 12:00:00 AM EDT 1.0 {application} active Clindamycin Phosphate 1 % eCW1 ([facility]) Tretinoin 0.95046 MG/MG Topical Gel Tretinoin 0.025 % Tretin oin 0.025 % 07/27/2020 12:00:00 AM EDT active Tretinoin 0.025 % eCW1 ([facility]) Tretinoin 0.77682 MG/MG Topical Gel Tretinoin 0.025 % Tretin oin 0.025 % 07/27/2020 12:00:00 AM EDT active Tretinoin 0.025 % eCW1 ([facility]) Clindamycin 0.01 MG/MG Topical Gel Clindamycin Phospha te 1 % Clindamycin Phosphate 1 % 07/27/2020 12:00:00 AM EDT 1.0 {application} active Clindamycin Phosphate 1 % eCW1 ([facility]) Tretinoin 0.74707 MG/MG Topical Gel Tretinoin 0.025 % Tretin oin 0.025 % 07/27/2020 12:00:00 AM EDT suspended Tretinoin 0.025 % eCW1 ([facility]) Clindamycin 0.01 MG/MG Topical Gel Clindamycin Phospha te 1 % Clindamycin Phosphate 1 % 07/27/2020 12:00:00 AM EDT 1.0 {application} active Clindamycin Phosphate 1 % eCW1 ([facility]) Clindamycin 0.01 MG/MG Topical Gel Clindamycin Phospha te 1 % Clindamycin Phosphate 1 % 07/27/2020 12:00:00 AM EDT 1.0 {application} suspended Clindamycin Phosphate 1 % eCW1 ([facility]) Tretinoin 0.70666 MG/MG Topical Gel Tretinoin 0.025 % Tretin oin 0.025 % 07/27/2020 12:00:00 AM EDT active Tretinoin 0.025 % eCW1 ([facility]) Clindamycin 0.01 MG/MG Topical Gel Clindamycin Phospha te 1 % Clindamycin Phosphate 1 % 07/27/2020 12:00:00 AM EDT 1.0 {application} active Clindamycin Phosphate 1 % eCW1 ([facility]) Clindamycin 0.01 MG/MG Topical Gel Clindamycin Phospha te 1 % Clindamycin Phosphate 1 % 07/27/2020 12:00:00 AM EDT 1.0 {application} active Clindamycin Phosphate 1 % eCW1 ([facility]) Clindamycin 0.01 MG/MG Topical Gel Clindamycin Phospha te 1 % Clindamycin Phosphate 1 % 07/27/2020 12:00:00 AM EDT 1.0 {application} suspended Clindamycin Phosphate 1 % eCW1 ([facility]) Tretinoin 0.07709 MG/MG Topical Gel 0.025 % TRETINOIN 07/27/2020 12:00:00 AM EDT gel 30 APPLY TO FACE IN THE EVENING ONCE A DAY APPLY TO FACE IN THE EVENING ONCE A DAY SOLD: 07/31/2020 [facility] Tretinoin 0.12423 MG/MG Topical Gel Tretinoin 0.025 % Tretin oin 0.025 % 07/27/2020 12:00:00 AM EDT active Tretinoin 0.025 % eCW1 ([facility]) Tretinoin 0.25937 MG/MG Topical Gel Tretinoin 0.025 % Tretin oin 0.025 % 07/27/2020 12:00:00 AM EDT active Tretinoin 0.025 % eCW1 ([facility]) Clindamycin 0.01 MG/MG Topical Gel Clindamycin Phospha te 1 % Clindamycin Phosphate 1 % 07/27/2020 12:00:00 AM EDT 1.0 {application} active Clindamycin Phosphate 1 % eCW1 ([facility]) Tretinoin 0.39064 MG/MG Topical Gel Tretinoin 0.025 % Tretin oin 0.025 % 07/27/2020 12:00:00 AM EDT active Tretinoin 0.025 % eCW1 ([facility]) Clindamycin 0.01 MG/MG Topical Gel Clindamycin Phospha te 1 % Clindamycin Phosphate 1 % 07/27/2020 12:00:00 AM EDT 1.0 {application} suspended Clindamycin Phosphate 1 % eCW1 ([facility]) Tretinoin 0.65111 MG/MG Topical Gel Tretinoin 0.025 % Tretin oin 0.025 % 07/27/2020 12:00:00 AM EDT suspended Tretinoin 0.025 % eCW1 ([facility]) Clindamycin 0.01 MG/MG Topical Gel Clindamycin Phospha te 1 % Clindamycin Phosphate 1 % 07/27/2020 12:00:00 AM EDT 1.0 {application} active Clindamycin Phosphate 1 % eCW1 ([facility]) Tretinoin 0.01666 MG/MG Topical Gel Tretinoin 0.025 % Tretin oin 0.025 % 07/27/2020 12:00:00 AM EDT active Tretinoin 0.025 % eCW1 ([facility]) Clindamycin 0.01 MG/MG Topical Gel Clindamycin Phospha te 1 % Clindamycin Phosphate 1 % 07/27/2020 12:00:00 AM EDT 1.0 {application} active Clindamycin Phosphate 1 % eCW1 ([facility]) Tretinoin 0.57500 MG/MG Topical Gel Tretinoin 0.025 % Tretin oin 0.025 % 07/27/2020 12:00:00 AM EDT suspended Tretinoin 0.025 % eCW1 ([facility]) Clindamycin 0.01 MG/MG Topical Gel Clindamycin Phospha te 1 % Clindamycin Phosphate 1 % 07/27/2020 12:00:00 AM EDT 1.0 {application} active Clindamycin Phosphate 1 % eCW1 ([facility]) Tretinoin 0.41737 MG/MG Topical Gel Tretinoin 0.025 % Tretin oin 0.025 % 07/27/2020 12:00:00 AM EDT active Tretinoin 0.025 % eCW1 ([facility]) Tretinoin 0.69753 MG/MG Topical Gel Tretinoin 0.025 % Tretin oin 0.025 % 07/27/2020 12:00:00 AM EDT active Tretinoin 0.025 % eCW1 ([facility]) Tretinoin 0.13091 MG/MG Topical Gel Tretinoin 0.025 % Tretin oin 0.025 % 07/27/2020 12:00:00 AM EDT active Tretinoin 0.025 % eCW1 ([facility]) 1 % 07/12/2020 12:00:00 AM EDT lotion 60 APPLY TO AFFECTED AREA(S) TWO TIMES A DAY APPLY TO AFFECTED AREA(S) TWO TIMES A DAY SOLD: 07/13/2020 [facility] Clindamycin 10 MG/ML Topical Lotion Clindamycin Phosph ate 1 % Clindamycin Phosphate 1 % 07/11/2020 12:00:00 AM EDT 1.0 {application} active Clindamycin Phosphate 1 % eCW1 ([facility]) 100 mg 06/12/2020 12:00:00 AM [...] type / Coverage type Policy ID Covered alliance party ID Covered alliance party's relationship to red Policy Red Plan Information RPR- Needs Payer Match [id number] Self [id number] [employer] [id number] Self [id number] [facility] [id number] ANSI-Medicaid [id number] ANSI-Commercial [id number] ANSI-Commercial [id number] [facility] [id number] ANSI-Commercial [id number] ANSI-Medicaid [id number] ANSI-Commercial [id number] ANSI-Medicaid [id number] ANSI-Medicaid [id number] ANSI-Commercial [id number] ANSI-Medicaid [id number] ANSI-Commercial [id number] ANSI-Medicaid [id number] ANSI-Commercial [id number] ANSI-Medicaid [id number] ANSI-Commercial [id number] Medicaid [place] Medigap Part B [id number] Self [id number] [employer] [place] Medicaid [id number] Self [id number] [facility] MEDICAID [facility] [id number] S [id number] [employer] [place] Medicaid [id number] Self [id number] [facility]ERS [id number] SP [id number] SELF PAY UNAVAILABLE SP UNAVAILA BLE [facility]) P [id number] S [id number] [facility]) S UNAVAILABLE [id number] S UNAVAILABLE HMO BLUE P [id number] S [id number] [facility] [id number] SP [id number] [facility] [employer] [id number] SP [id number] MEDICAID [id number] SP [id number] Problems, Conditions, and Diagnoses Code Display Name Description Problem Type Effective Dates Data Source(s) N92.6 Irregular periods Irregular bleeding Problem 12/12/2020 12:00:00 AM EDT eCW1 ([facility]) Surgeries/Procedures No Information Results ID Date Data Source [id number] 08/12/2020 07:06:00 PM EST [facility] Name Value Range Interpretation Code Description Data Rajani rce(s) Supporting Document(s) SARS coronavirus 2 RNA [facility] This lab was ordered by [facility] and rep orted by [facility]. ID Date Data Source [id number] 08/07/2020 12:15:00 PM EST [facility] Name Value Range Interpretation Code Description Data Rajani rce(s) Supporting Document(s) SARS coronavirus 2 RNA [facility] This lab was ordered by [facility] and rep orted by [facility]. Procedure Social History Code Duration Value Status Description Data Source(s ) Smoking 07/16/2021 12:00:00 AM EDT Current Smoker completed Curre nt Smoker eCW1 ([facility]) Smoking 07/16/2021 12:00:00 AM EDT Current Smoker completed Curre nt Smoker eCW1 ([facility]) Smoking 05/29/2021 12:00:00 AM EDT Current Smoker completed Curre nt Smoker eCW1 ([facility]) Smoking 12/12/2020 12:00:00 AM EDT Current Smoker completed Curre nt Smoker eCW1 ([facility]) Smoking 12/12/2020 12:00:00 AM EDT Current Smoker completed Curre nt Smoker eCW1 ([facility]) Smoking 12/12/2020 12:00:00 AM EDT Current Smoker completed Curre nt Smoker eCW1 ([facility]) Smoking 12/12/2020 12:00:00 AM EDT Current Smoker completed Curre nt Smoker eCW1 ([facility]) Smoking 12/12/2020 12:00:00 AM EDT Current Smoker completed Curre nt Smoker eCW1 ([facility]) Smoking 10/05/2020 12:00:00 AM EST Current Smoker completed Curre nt Smoker eCW1 ([facility]) Smoking 10/05/2020 12:00:00 AM EST Current Smoker completed Curre nt Smoker eCW1 ([facility]) Smoking 10/05/2020 12:00:00 AM EST Current Smoker completed Curre nt Smoker eCW1 ([facility]) Smoking 07/25/2020 12:00:00 AM EDT Current Smoker completed Curre nt Smoker eCW1 ([facility]) Smoking 07/25/2020 12:00:00 AM EDT Current Smoker completed Curre nt Smoker eCW1 ([facility]) Smoking 07/25/2020 12:00:00 AM EDT Current Smoker completed Curre nt Smoker eCW1 ([facility]) Smoking 07/25/2020 12:00:00 AM EDT Current Smoker completed Curre nt Smoker eCW1 ([facility]) Vital Signs ID Date Data Source UNK Name Value Range Interpretation Code Description Data Source(s) Body weight 143.8 [lb_av] 143.8 [lb_av] eCW1 ([facility]) Body weight 65.23 kg 65.23 kg eCW1 ([facility] Body height 60 [in_i] 60 [in_i] eCW1 ([facility]) Body mass index (BMI) [Ratio] 28.08 kg/m2 28.08 kg/m2 eCW1 ([facility]) Systolic blood pressure 110 mm[Hg] 110 mm[Hg] e CW1 ([facility]) Diastolic blood pressure 78 mm[Hg] 78 mm[Hg] eCW1 ([facility]) Body weight 144 [lb_av] 144 [lb_av] eCW1 ([facility]) Body weight 65.32 kg 65.32 kg eCW1 ([facility] Body height 60 [in_i] 60 [in_i] eCW1 ([facility]) Body mass index (BMI) [Ratio] 28.12 kg/m2 28.12 kg/m2 eCW1 ([facility]) Heart rate 95 /min 95 /min eCW1 ([facility]) Respiratory rate 17 /min 17 /min eCW1 ([facility]) Body temperature 98.2 [degF] 98.2 [degF] eCW1 ( [facility]) Systolic blood pressure 127 mm[Hg] 127 mm[Hg] e CW1 ([facility]) Diastolic blood pressure 77 mm[Hg] 77 mm[Hg] eCW1 ([facility]) Body weight 143.8 [lb_av] 143.8 [lb_av] eCW1 ([facility]) Body height 60 [in_i] 60 [in_i] eCW1 ([facility]) Body mass index (BMI) [Ratio] 28.08 kg/m2 28.08 kg/m2 eCW1 ([facility]) Systolic blood pressure 132 mm[Hg] 132 mm[Hg] e CW1 ([facility]) Diastolic blood pressure 82 mm[Hg] 82 mm[Hg] eCW1 ([facility]) Body weight 147.0 [lb_av] 147.0 [lb_av] eCW1 ([facility]) Body height 60 [in_i] 60 [in_i] eCW1 ([facility]) Body mass index (BMI) [Ratio] 28.71 kg/m2 28.71 kg/m2 eCW1 ([facility]) Systolic blood pressure 126 mm[Hg] 126 mm[Hg] e CW1 ([facility]) Diastolic blood pressure 74 mm[Hg] 74 mm[Hg] eCW1 ([facility]) Body weight 138.0 [lb_av] 138.0 [lb_av] eCW1 ([facility]) Body height 60 [in_i] 60 [in_i] eCW1 ([facility]) Body mass index (BMI) [Ratio] 26.95 kg/m2 26.95 kg/m2 eCW1 ([facility]) Systolic blood pressure 122 mm[Hg] 122 mm[Hg] e CW1 ([facility]) Diastolic blood pressure 74 mm[Hg] 74 mm[Hg] eCW1 ([facility]) Patient Treatment Plan of Care Planned Activity Planned Date Details Description Data Source (s) Norethindrone 0.35 MG 07/11/2021 12:00:00 AM EDT eCW1 ([facility]) Norethindrone 0.35 MG 07/11/2021 12:00:00 AM EDT eCW1 ([facility]) Alprazolam 0.5 MG Oral Tablet [Xanax] 05/29/2021 12:00:00 AM EDT eCW1 ([facility]) Citalopram 10 MG Oral Tablet 05/29/2021 12:00:00 AM EDT eCW1 ([facility]) Norethindrone 0.35 MG 11/07/2020 12:00:00 AM EST eCW1 ([facility]) Clindamycin 0.01 MG/MG Topical Gel 07/27/2020 12:00:00 AM EDT eCW1 ([facility]) Tretinoin 0.23670 MG/MG Topical Gel 07/27/2020 12:00:00 AM EDT eCW1 ([facility]) Clindamycin 0.01 MG/MG Topical Gel 07/27/2020 12:00:00 AM EDT eCW1 ([facility]) Tretinoin 0.86366 MG/MG Topical Gel 07/27/2020 12:00:00 AM EDT eCW1 ([facility]) Clindamycin 0.01 MG/MG Topical Gel 07/27/2020 12:00:00 AM EDT eCW1 ([facility]) Tretinoin 0.52270 MG/MG Topical Gel 07/27/2020 12:00:00 AM EDT eCW1 ([facility]) Clindamycin 0.01 MG/MG Topical Gel 07/27/2020 12:00:00 AM EDT eCW1 ([facility]) Tretinoin 0.82842 MG/MG Topical Gel 07/27/2020 12:00:00 AM EDT eCW1 ([facility]) Clindamycin 0.01 MG/MG Topical Gel 07/27/2020 12:00:00 AM EDT eCW1 ([facility]) Tretinoin 0.38693 MG/MG Topical Gel 07/27/2020 12:00:00 AM EDT eCW1 ([facility]) Clindamycin 0.01 MG/MG Topical Gel 07/27/2020 12:00:00 AM EDT eCW1 ([facility]) Tretinoin 0.46975 MG/MG Topical Gel 07/27/2020 12:00:00 AM EDT eCW1 (Formerly [facility]) Clindamycin 0.01 MG/MG Topical Gel 07/27/2020 12:00:00 AM EDT eCW1 (Formerly [facility]) Tretinoin 0.71997 MG/MG Topical Gel 07/27/2020 12:00:00 AM EDT eCW1 (Formerly [facility]) Clindamycin 10 MG/ML Topical Lotion 07/11/2020 12:00:00 AM EDT eCW1 (Formerly [facility])
[2021-08-30] MEDS ORDERED: ONDANSETRON 4MG/2ML VIAL IV ONE (11:25)
[2021-08-30] MEDS ORDERED: NS 1,000 ML IV ONE (11:25)
[2021-08-30 12:00] LABS: BASO % 0.4 % (0.0-1.0); EOS # 0.2 10^3/uL (0.0-0.5); EOS % 1.8 % (0.0-3.0); HEMATOCRIT 45.7 % (36.0-47.0); HEMOGLOBIN 15.1 g/dl (12.0-15.5); LYMPH # 2.5 10^3/uL (1.5-5.0); LYMPH % 22.5 % (24.0-44.0); MEAN CORPUSCULAR HEMOGLOBIN 30.6 pg (27.0-33.0); MEAN CORPUSCULAR VOLUME 92.5 fl (80.0-96.0); MONO # 0.8 10^3/uL (0.0-0.8); MONO % 7.2 % (2.0-8.0); NEUTROPHILS # 7.6 10^3/uL (1.5-8.5); NEUTROPHILS % 67.7 % (36.0-66.0); PLATELET COUNT, AUTOMATED 283 10^3/uL (150-450); RED BLOOD COUNT 4.94 10^6/uL (4.00-5.40); WHITE BLOOD COUNT 11.3 10^3/uL (4.0-10.0)
[2021-08-30 12:40] LABS: FREE THYROXINE INDEX 2.2 % (1.3-4.8); MAGNESIUM LEVEL 2.2 MG/DL (1.8-2.4); THYROID STIMULATING HORMONE 1.79 uIU/ML (0.358-3.740); THYROXINE (T4) 6.9 UG/DL (4.5-12.0)
--- NOTE | 2021-08-30 12:48 | REP ---
INDICATION: elev WBC, fatigue. COMPARISON: 02/21/2012 TECHNIQUE: Portable FINDINGS: The technique utilized in obtaining the radiograph has magnified the cardiac silhouette and accentuated the interstitial markings. The superior mediastinal structures are midline. The cardiac silhouette is unremarkable in size, shape, and position. The diaphragmatic surfaces of the lungs are regular, and the costophrenic angles are clear. The pulmonary reyes are clear. The imaged osseous structures are intact. IMPRESSION: There is no acute cardiopulmonary disease. <Electronically signed by Gregorio Whittaker > 08/30/21 [id number]
[2021-08-30 13:42] LABS: RSV AMPLIFICATION NEGATIVE (NEGATIVE)
[2021-08-30 14:09] VITALS: BP 137/82
== END 2021-08-30 14:12 | disposition home or self-care (01) ==
LOC: M ED 08:56
DX: H53.8 Other visual disturbances (principal); R41.0 Disorientation, unspecified; K21.9 Gastro-esophageal reflux disease without esophagitis; F17.200 Nicotine dependence, unspecified, uncomplicated; Z79.899 Other long term (current) drug therapy
CPT/HCPCS: 70450; 71045; 80047; 83605; 83735; 84436; 84443; 84479; 84702; 85025; 87040; 87631; 96361; 96374; 99284; J2405

== ENCOUNTER → 2024-03-22 | Outpatient (REF) | payer BC, OTHER ==
[~2024-03-22] MED LIST: ALPR0.5T3; CITA10TA7; CYCL-707; DEBL1TAB; DICL50TAB
[2024-03-24 15:26] LABS: HPV APTIMA Not Detected (Not Detected)
== END ==
LOC: M SFHCWAGY 14:55
PROVIDERS: ATTEND Specialist
DX: Z12.4 Encounter for screening for malignant neoplasm of cervix (principal)
CPT/HCPCS: 87624; G0123